=== PATIENT | female | born 1945 | race Caucasian/White ===

== ENCOUNTER 2018-04-16 05:23 | Day surgery (SDC) | payer OTHER ==
[~2018-04-16] VITALS: Ht 162.6 cm; Wt 77.1 kg
[~2018-04-16 05:23] MED LIST: COREG6.25 M1 PO; COZAAR100 MG PO; CRESTOR20 MG PO; DITROPAN XL10 MG PO; GLUCOPHAGE500 MG PO; GLUCOTROL5 MG PO; LO-DOSE ASPIRIN81 M1 PO; ONCE DAILY1 EACH PO
[2018-04-16 06:00] VITALS: BP 164/79
[2018-04-16] MEDS ORDERED: HYDROCODON-ACE1 EAC7 PO (13:20)
[2018-04-16 15:29] VITALS: BP 162/88
[2018-04-16 16:29] VITALS: BP 47/75
== END 2018-04-16 16:58 | disposition home or self-care (01) ==
LOC: SDC 05:23 → NUC 07:00 → SDC 16:58
PROVIDERS: Surgery
DX: C50.511 Malignant neoplasm of lower-outer quadrant of right female breast (principal); Z17.0 Estrogen receptor positive status [ER+]; Z85.41 Personal history of malignant neoplasm of cervix uteri; Z90.710 Acquired absence of both cervix and uterus; Z90.79 Acquired absence of other genital organ(s); Z90.722 Acquired absence of ovaries, bilateral
CPT/HCPCS: 78195; 78999; 82948; 88305; 88307; 88342 TC; A9541; J0131; J0690; J1100; J2250; J2405; J3010; S0020